=== PATIENT | female | born 1955 | race Caucasian/White ===

== ENCOUNTER → 2017-11-07 | Outpatient (CLI) | payer OTHER ==
[~2017-11-07] MED LIST: ASPIR 8181 MG PO; ESTRACE2 MG PO; EYE VITAMINS PO; LEVOTHYROXINE 175 MCG; NEXIUM40 MG PO
--- NOTE | 2017-11-08 10:19 | Diagnostic Imaging Report ---
PROCEDURE:RENAL ULTRASOUND COMPARISON:CT abdomen and pelvis 02/07/2014. INDICATIONS:DISORDERS OF URINARY SYSTEM. Bladder infections since June. TECHNIQUE: Goldberg-scale and color sonographic images of the bilateral kidneys and bladder where obtained in transverse and longitudinal planes. FINDINGS: RIGHT KIDNEY: 10.9 x 5.4 x 5.1 cm, cortex 1.4 cm Cysts: None. Solid masses: None. Stones: None. Hydronephrosis: None. Echogenicity: Normal. LEFT KIDNEY: 10.4 x 5.1 x 4.6 cm, cortex 1.3 cm Cysts: None. Solid masses: None. Stones: None. Hydronephrosis: None. Echogenicity: Normal. Bladder: Bilateral ureteral jets are visualized. Bladder was incompletely distended. Questionable internal echoes versus motion. CONCLUSION: 1. Normal kidneys. 2. Bladder was incompletely distended. Questionable internal echoes versus motion. Recommend followup with pelvic ultrasound (bladder ultrasound). Dictated by: Sanford Westfall M.D. on 11/07/2017 at 17:41 Electronically approved by: Sanford Westfall M.D. on 11/07/2017 at 17:41
--- NOTE | 2017-11-08 10:19 | Diagnostic Imaging Report ---
PROCEDURE:ABDOMEN 1 VIEW (KUB) COMPARISON:CT abdomen pelvis 02/07/2014. INDICATIONS:UTI FINDINGS: Right upper quadrant cholecystectomy clips. Partially visualized left-sided sacral stimulator wire. The generator component is not visualized. Moderate degenerative changes at L4-L5 and L5-S1. Moderate stool in the left colon and rectum. Relative paucity of stool in the right colon. CONCLUSION:Moderate stool in the left colon and rectum. No evidence of small bowel obstruction. Dictated by: Sanford Westfall M.D. on 11/07/2017 at 17:50 Electronically approved by: Sanford Westfall M.D. on 11/07/2017 at 17:50
== END ==
LOC: US 16:19
PROVIDERS: ATTEND Urology
DX: N39.0 Urinary tract infection, site not specified (principal)
CPT/HCPCS: 74018; 76770

== ENCOUNTER → 2017-11-23 | Day surgery (SDC) | payer OTHER ==
[~2017-11-23] MED LIST changes: +BELLADONNA/OPIUM 30 MG SUPP RC ONE; +BYSTOLIC10 MG PO; +CEFTRIAXONE SOD 1 GM VIAL ONE; +DEXAMETHASONE SOD PHOS INJ 4 MG/ML VIAL ONE; +FAMOTIDINE 20 MG/2 ML VIAL IV ONE; +FENTANYL CITRATE/PF 100MCG/2 ML INJ ONE; +GENTAMICIN 80MG/NS 100 ML 100 ML IV ONE; +IOPAMIDOL 610MG/1ML 300 MG/ML VIAL IV ONE; +KETOROLAC TROMETHAMINE 30 MG/ML VIAL ONE; +LIDOCAINE HCL 2% LOCAL INJ 5 ML SDV VIAL INJ ONE; +LIPITOR20 MG; +MACROBID 100 M100 MG; +MIDAZOLAM HCL 2 MG/2 ML VIAL ONE; +ONDANSETRON HCL INJ 2 MG/ML VIAL ONE; +PROPOFOL IV EMULSION 10 MG/ML 20 ML VIAL ONE; +SEVOFLURANE INHAL SOLN 250 ML PEN BTL ONE; +SYNTHROID125 MCG PO
--- NOTE | 2018-01-16 03:15 | Operative Report ---
DATE OF PROCEDURE: November 23, 2017 PREOPERATIVE DIAGNOSIS: Urinary tract infections. POSTOPERATIVE DIAGNOSES: 1. Urinary tract infections. 2. Grade 2 cystocele. 3. Urethral hypermobility. 4. Mild rectocele. 5. Atrophic (senile) vaginitis. OPERATIONS PERFORMED: 1. Cystourethroscopy with bilateral ureteral catheterization and retrograde ureteropyelography. 2. Interpretation of retrograde ureteropyelography. 3. Supervision of fluoroscopy, no radiologist present. 4. Pelvic examination under anesthesia. ANESTHESIA: General. COMPLICATIONS: None. CLINICAL SUMMARY: Ana Briceño is a 62-year-old woman with recurrent urinary tract infections. She has a left InterStim in place and is working well. The patient also has not had significant problem with chronic Macrobid. She is aware of the risks of bleeding, infection, injury to adjacent structures, need for additional procedures, and elected to proceed. OPERATIVE PROCEDURE IN DETAIL: Informed consent was verified. Ana Briceño was properly identified, taken to the operating room, and placed on the cystoscopy table in supine position. Anesthesia was uneventfully begun. The patient was then carefully and gently repositioned in the dorsal lithotomy position with all pressure points well padded. Her genitalia were prepared and draped in usual sterile fashion. The 22.5-German cystoscope sheath with the obturator in place was atraumatically inserted into patient's urethra and the bladder was drained. Panendoscopy of the urinary bladder revealed no suspicious mucosal lesions, no tumors, no stones, and no diverticula. Normally positioned ureteral orifices were identified. There was trigonitis noted. A ureteral catheter was used to cannulate each ureter, and retrograde ureteral pyelograms were performed. Interpretation of retrograde ureteropyelography: Contrast was instilled in retrograde fashion bilaterally. There were no tumors, no stones, and no diverticula. Unobstructed drainage was observed bilaterally fluoroscopically. The left InterStim implant appeared to be in adequate position. The patient's bladder was then drained. The cystoscope was withdrawn. Pelvic examination under anesthesia revealed a grade 2 cystocele with urethral hypermobility and mild rectocele was noted as well as atrophic (senile) vaginitis. The patient was then uneventfully reversed from anesthesia and taken to recovery room in stable condition. There were no complications to the procedure. She tolerated the procedure well. Explicit postoperative instructions were given. Will follow the patient up in the office. Job#: [id number]
== END | disposition home or self-care (01) ==
LOC: OR 09:57
PROVIDERS: ATTEND Urology
DX: N30.30 Trigonitis without hematuria (principal); N81.10 Cystocele, unspecified; N36.41 Hypermobility of urethra; N81.6 Rectocele; N95.2 Postmenopausal atrophic vaginitis; E78.5 Hyperlipidemia, unspecified; I10 Essential (primary) hypertension; E03.9 Hypothyroidism, unspecified; K21.9 Gastro-esophageal reflux disease without esophagitis; Z01.810 Encounter for preprocedural cardiovascular examination; Z87.891 Personal history of nicotine dependence
CPT/HCPCS: 52005; 74420; 93005; J0696; J1100; J1580; J1885; J2001; J2250; J2405; Q9967

== ENCOUNTER 2019-12-13 13:41 | Emergency (ER) | payer OTHER ==
[~2019-12-13] VITALS: Ht 170.2 cm; Wt 77.1 kg
[~2019-12-13 13:41] MED LIST changes: -BELLADONNA/OPIUM 30 MG SUPP RC ONE; -CEFTRIAXONE SOD 1 GM VIAL ONE; -DEXAMETHASONE SOD PHOS INJ 4 MG/ML VIAL ONE; -FAMOTIDINE 20 MG/2 ML VIAL IV ONE; -FENTANYL CITRATE/PF 100MCG/2 ML INJ ONE; -GENTAMICIN 80MG/NS 100 ML 100 ML IV ONE; -IOPAMIDOL 610MG/1ML 300 MG/ML VIAL IV ONE; -KETOROLAC TROMETHAMINE 30 MG/ML VIAL ONE; -LIDOCAINE HCL 2% LOCAL INJ 5 ML SDV VIAL INJ ONE; -MIDAZOLAM HCL 2 MG/2 ML VIAL ONE; -ONDANSETRON HCL INJ 2 MG/ML VIAL ONE; -PROPOFOL IV EMULSION 10 MG/ML 20 ML VIAL ONE; -SEVOFLURANE INHAL SOLN 250 ML PEN BTL ONE
--- NOTE | 2019-12-13 15:09 | Diagnostic Imaging Report ---
X-ray chest AP portable Comparison: None History: Cough, shortness of breath. Findings: Lower neck is excluded. Central airways unremarkable. Heart size normal. No pleural effusion. No pneumothorax. Patchy bilateral pulmonary opacities with prominent interstitial markings in the axial parenchyma. Visualized skeletal structures and upper abdomen unremarkable. Impression: Pneumonitis such as with viral pneumonia should be considered. Signed by: Tre Ybarra MD on 12/13/2019 3:06 PM
--- NOTE | 2019-12-13 16:12 | Emergency Department Note ---
History of Present Illnes History of Present Illness Chief Complaint: Respiratory History of Present Illness This is a 64 year old female . Historian: Patient Arrival Mode: Car Past Medical/Family History Physician Review I have reviewed the patient's past medical and family history. Any updates have been documented here. Past Medical History Recent Fever: No Clinical Suspicion of Infectio: Yes New/Unexplained Change in Ment: No Past Medical History: Hypertension, Hypothyroidism, Hyperlipedemia Past Surgical History: Cholecysctectomy, Hysterectomy Other Surgery: bunion sx Review of Systems Review of Systems Constitutional: Reports no symptoms EENTM: Reports no symptoms Cardiovascular: Reports no symptoms Respiratory: Reports as per HPI Gastrointestinal: Reports no symptoms Genitourinary: Reports no symptoms Musculoskeletal: Reports no symptoms Integumentary: Reports no symptoms Neurological: Reports no symptoms Psychological: Reports no symptoms Endocrine: Reports no symptoms Hematological/Lymphatic: Reports no symptoms Review of other systems: All other systems negative Physical Exam Related Data Allergies: Coded Allergies: No Known Allergies (Unverified , 03/04/15) Triage Vital Signs Vital Signs Date Time Temp Pulse Resp B/P (MAP) Pulse Ox O2 Delivery O2 Flow Rate FiO2 12/13/19 14:13 98.0 92 18 142/84 92 Room Air Vital signs reviewed: Yes Physical Exam CONSTITUTIONAL Constitutional: Present well-developed, Present well-nourished HENT HENT: Present normocephalic, Present atraumatic, Present oropharynx clear/moist, Present nose normal HENT L/R: Present left ext ear normal, Present right ext ear normal EYES Eyes: Reports PERRL, Reports conjunctivae normal NECK Neck: Present ROM normal PULMONARY Pulmonary: Present effort normal, Present breath sounds normal CARDIOVASCULAR Cardiovascular: Present regular rhythm, Present heart sounds normal, Present capillary refill normal, Present normal rate GASTROINTESTINAL Abdominal: Present soft, Present nontender, Present bowel sounds normal GENITOURINARY Genitourinary: Present exam deferred SKIN Skin: Present warm, Present dry MUSCULOSKELETAL Musculoskeletal: Present ROM normal NEUROLOGICAL Neurological: Present alert, Present oriented x 3, Present no gross motor or sensory deficits PSYCHOLOGICAL Psychological: Present mood/affect normal, Present judgement normal Results Imaging Imaging results reviewed: Yes Impressions Findings: Lower neck is excluded. Central airways unremarkable. Heart size normal. No pleural effusion. No pneumothorax. Patchy bilateral pulmonary opacities with prominent interstitial markings in the axial parenchyma. Visualized skeletal structures and upper abdomen unremarkable. Impression: Pneumonitis such as with viral pneumonia should be considered. Assessment & Plan Medical Decision Making MDM 64-year-old well-appearing female arrives to the ED with complaints of cough fever loss of taste and smell. Patient is clinically presenting with signs and symptoms consistent with Covid 19. Patient informed she is positive until proven otherwise. Patient's oxygen saturation remained over 92% even on exertion, no evidence of tachypnea or dyspnea noted in the ED. Spoke present length about the importance of sleeping on her stomach and rotating from side to side. Z-Krishna and Decadron given, signs and symptoms for return discussed. In the light of the Covid pandemic, disaster medicine care was given- Patient's lab work reviewed,- chest x-ray shows questionable patchy airspace opacities . Patient clinically appears well, outpatient pulmonary follow-up given. The red flags for return to emergency department given. Patient understands the emergency department is open at all times to serve her needs as well as the needs of the community. Assessment & Plan Final Impression: (1) COVID-19 Depart Disposition: HOME, SELF-CARE Last Vital Signs Date Time Temp Pulse Resp B/P (MAP) Pulse Ox O2 Delivery O2 Flow Rate FiO2 12/13/19 14:13 98.0 92 18 142/84 92 Room Air Home Meds Reported Medications Levothyroxine Sodium (SYNTHROID) 125 Mcg Tab, 175 MCG PO 0630, #30 TAB 11/21/17 Atorvastatin Calcium (LIPITOR) 20 Mg Tablet, 20 MG DAILY, #30 TAB 11/21/17 Nebivolol Hcl (BYSTOLIC) 10 Mg Tablet, 5 MG PO DAILY, TAB 11/21/17 Nitrofurantoin Monohyd/M-Cryst (MACROBID 100 MG CAPSULE) 100 Mg Capsule 11/21/17 [Eye Vitamins] No Conflict Check, PO DAILY 12/17/15 Estradiol (ESTRACE) 2 Mg Tablet, 2 MG PO DAILY 03/04/15 Esomeprazole Magnesium (NEXIUM) 40 Mg Capsule., 40 MG PO DAILY PROTONIX THERAPEUTIC SUBSTITUTE FOR NEXIUM PER [facility] 03/04/15 YOVANA ROMERO DO Dec 13, 2019 16:12
== END 2019-12-13 16:01 | disposition home or self-care (01) ==
LOC: ER 14:26
DX: U07.1 COVID-19 (principal); R05 Cough; I10 Essential (primary) hypertension; E78.5 Hyperlipidemia, unspecified; E03.9 Hypothyroidism, unspecified
CPT/HCPCS: 71045; 99283